=== PATIENT | female | born 1935 | race Caucasian/White ===

== ENCOUNTER 2019-06-06 22:32 | Emergency (ER) | payer OTHER ==
[~2019-06-06] VITALS: Ht 172.7 cm; Wt 90.7 kg
[2019-06-07] MEDS ORDERED: BENADRYL25 MG PO (17:59)
[2019-06-07] MEDS ORDERED: NAPR220 PO (17:59)
[2019-06-07] MEDS ORDERED: ONE DAILY FOR1 EACH PO (18:01)
== END 2019-06-07 01:36 | disposition home or self-care (01) ==
LOC: ER 22:32
DX: S70.02XA Contusion of left hip, initial encounter (principal); S70.01XA Contusion of right hip, initial encounter; Z88.5 Allergy status to narcotic agent; W19.XXXA Unspecified fall, initial encounter
CPT/HCPCS: 73502; 99283-25; A9270; A9270-GY

== ENCOUNTER → 2019-07-29 | Outpatient (CLI) | payer OTHER ==
[~2019-07-29] MED LIST: BENADRYL25 MG PO; CEPH250A; NAPR220 PO; Nystatin15 GM; ONE DAILY FOR1 EACH PO; Prinivil10 MG PO; SACC250C; TUMS500 MG PO
[2019-07-29 10:40] LABS: Anion Gap 5 mmol/L (6-16); Blood Urea Nitrogen 16 mg/dL (8-24); Bun/Creatinine Ratio 20.7 (12.0-20.0); CO2, Blood 30 mmol/L (21-32); Chloride, Blood 107 mmol/L (98-108); Creatinine, Blood 0.77 mg/dL (0.40-1.00); Glomerular Filtration Rate >60 (60-); Glucose, Blood 82 mg/dL (70-99); Potassium, Blood 4.5 mmol/L (3.5-5.5); Sodium, Blood 142 mmol/L (136-145)
== END | disposition home or self-care (01) ==
LOC: LAB UVN 08:32 → EDSTATUS 11:14
PROVIDERS: Family Medicine
DX: I10 Essential (primary) hypertension (principal); L03.115 Cellulitis of right lower limb
CPT/HCPCS: 80048

== ENCOUNTER 2020-09-20 09:37 | Observation (INO) | payer OTHER ==
[~2020-09-20] VITALS: Ht 177.8 cm; Wt 102.1 kg
[2020-09-20] MEDS ORDERED: CARBLEV25 SL (10:03)
[2020-09-20] MEDS ORDERED: DULCOLAX400 MG/5 M PO (10:03)
[2020-09-20] MEDS ORDERED: TRAM50 PO (10:04)
[2020-09-20 10:05] LABS: BASOPHILS ABSOLUTE AUTO 0.06 K/mm3 (0.00-0.23); BASOPHILS PERCENT AUTO 0 % (0-2); EOSINOPHILS PERCENT AUTO 0 % (0-6); Hematocrit 47.9 % (33.0-51.0); Hemoglobin 15.6 g/dL (11.5-16.0); IMMATURE GRAN ABSOLUTE AUTO 0.11 K/mm3 (0.00-0.10); IMMATURE GRAN PERCENT AUTO 1 % (0-1); LYMPHOCYTES PERCENT AUTO 5 % (21-46); MONOCYTES ABSOLUTE AUTO 0.87 K/mm3 (0.16-1.47); MONOCYTES PERCENT AUTO 4 % (4-13); Mean Corpuscular HGB 30.9 pg (26.0-34.0); Mean Corpuscular HGB Conc 32.6 g/dL (31.5-36.5); Mean Corpuscular Volume 95 fL (80-100); NEUTROPHILS ABSOLUTE AUTO 19.82 K/mm3 (1.96-9.15); NEUTROPHILS PERCENT AUTO 91 % (41-73); Platelet Count 338 K/mm3 (150-400); RDW Coefficient Variation 12.3 % (11.7-14.2); RDW Standard Deviation 43.1 fL (35.1-46.3); Red Blood Cell Count 5.05 M/mm3 (3.80-5.20); White Blood Cell Count 21.86 K/mm3 (4.00-11.30)
[2020-09-20] MEDS ORDERED: ONDA4ODT MM (10:05)
[2020-09-20] MEDS ORDERED: GABA300 PO (10:06)
[2020-09-20] MEDS ORDERED: GABA100 PO (10:06)
[2020-09-20] MEDS ORDERED: SENN187 PO (10:07)
[2020-09-20] MEDS ORDERED: MIRALAX17 G3 PO (10:08)
[2020-09-20] MEDS ORDERED: Aspir 8181 MG PO (10:09)
[2020-09-20] MEDS ORDERED: DULO30 PO (10:11)
[2020-09-20 10:31] LABS: Alanine Aminotransfer (ALT/SGP 18 U/L (12-78); Albumin, Blood 3.4 g/dL (3.4-5.0); Albumin/Globulin Ratio 0.7 (0.8-1.8); Alk Phos 102 U/L (50-136); Anion Gap 6 mmol/L (6-16); Aspartate Aminotrans (AST/SGOT 24 U/L (12-37); Bilirubin, Total 0.4 mg/dL (0.1-1.0); Blood Urea Nitrogen 22 mg/dL (8-24); Bun/Creatinine Ratio 39.4 (12.0-20.0); CO2, Blood 25 mmol/L (21-32); Calcium, Blood 9.5 mg/dL (8.5-10.1); Chloride, Blood 101 mmol/L (98-108); Creatinine, Blood 0.56 mg/dL (0.40-1.00); Globulin, Blood 5.1 g/dL (2.2-4.0); Glomerular Filtration Rate >60 (60-); Glucose, Blood 160 mg/dL (70-99); Sodium, Blood 132 mmol/L (136-145); Total Protein, Blood 8.5 g/dL (6.4-8.2)
[2020-09-20] MEDS ORDERED: CARBIDOPA-LEVO1 EA15 PO (12:19)
[2020-09-20 14:09] LABS: SARS-Cov-2 (COVID-19) PCR, MMC NEGATIVE (NEGATIVE)
--- NOTE | 2020-09-20 14:58 | NUR ---
09/20/20 1458 RAYMUNDOFARZAD DUGGAN PT RECEIVED SCHEDULED DOSES OF ANTIBIOTICS PRIOR TO PROCEDURE, PER DR ORDERS.
--- NOTE | 2020-09-20 18:30 | NUR ---
PT ARRIVED FROM PACU AT APPROXIMATELY 1830. PT RESPONDS TO QUESTIONS BUT IS DROWSY AND SLOW TO RESPOND. PT APPEARS TO HAVE DECREASED MOVEMENT TO ALL EXTREMITIES AT BASELINE. SHE IS UNABLE TO BEND HER FINGERS ON HER LEFT HAND, BUT CAN MOVE HER LEFT ARM. SHE APPEARS TO HAVE FOOT DROP. SHE HAS MOVEMENT IN HER R HAND AND ARM. PUPILS ARE EQUAL AND REACTIVE. SHE IS ORIENTED TO HERSELF, PLACE AND FOLLOWING DIRECTIONS. LAP SITES X3 COVERED WITH BANDAIDS, AND MELLY DRAIN, MODERATE SEROSANGINOUS DRAINAGE FROM AROUND DRAIN SITE. BP ELEVATED, WILL CONTINUE TO MONITOR.
--- NOTE | 2020-09-20 18:40 | NUR ---
Called [facility] to obtain information r/t pt's baseline, spoke with nurse Fernandez, who reported being minimally familiar w/ pt and an agency nurse. Nurse found from documentation that pt was last documented as a/o x 4 w/ no confusion and takes medications whole with water.
--- NOTE | 2020-09-20 23:00 | NUR ---
PT LETHARGIC.HELD PO FOR ASPIRATION RISK.DR ROBERTSON MADE ROUNDS TONIGHT.PT WITH NO VOID YET THIS SHIFT.WAS REPORTED PER DAY ROAD CONSULTANT PT VOIDED AT END OF THEIR SHIFT PER ATTEND.CURRENT BLADDER SCAN 239.ADVISED PATRICIA RODRIGUEZ. NO NEW ORDERS.WILL CONTINUE TO MONITOR.
--- NOTE | 2020-09-21 07:14 | NUR ---
SUMMARY PT AWAKE THIS AM.REFUSED LAB. PT HAD NO VOID THIS AM WITH BLADDER SCAN GREATER THAN 400 ML. 3 PERSON TRANSFER WT GAIT BELT.MAX LIFT.COMPLETE NWB. USED PRERNA BACK TO BED.PT INCONTINENT AFTER BACK TO BED.
[2020-09-21 09:40] LABS: BASOPHILS ABSOLUTE AUTO 0.03 K/mm3 (0.00-0.23); BASOPHILS PERCENT AUTO 0 % (0-2); EOSINOPHILS PERCENT AUTO 0 % (0-6); Hematocrit 39.6 % (33.0-51.0); Hemoglobin 12.7 g/dL (11.5-16.0); IMMATURE GRAN PERCENT AUTO 1 % (0-1); LYMPHOCYTES ABSOLUTE AUTO 1.35 K/mm3 (0.84-5.20); LYMPHOCYTES PERCENT AUTO 6 % (21-46); MONOCYTES ABSOLUTE AUTO 0.83 K/mm3 (0.16-1.47); MONOCYTES PERCENT AUTO 4 % (4-13); Mean Corpuscular HGB 30.5 pg (26.0-34.0); Mean Corpuscular HGB Conc 32.1 g/dL (31.5-36.5); Mean Corpuscular Volume 95 fL (80-100); Mean Platelet Volume 11.5 fL (9.1-12.4); NEUTROPHILS ABSOLUTE AUTO 20.66 K/mm3 (1.96-9.15); NEUTROPHILS PERCENT AUTO 90 % (41-73); Platelet Count 262 K/mm3 (150-400); RDW Coefficient Variation 12.9 % (11.7-14.2); RDW Standard Deviation 45.1 fL (35.1-46.3); Red Blood Cell Count 4.16 M/mm3 (3.80-5.20); White Blood Cell Count 23.07 K/mm3 (4.00-11.30)
[2020-09-21 09:51] LABS: Alanine Aminotransfer (ALT/SGP 27 U/L (12-78); Albumin, Blood 2.5 g/dL (3.4-5.0); Albumin/Globulin Ratio 0.7 (0.8-1.8); Alk Phos 66 U/L (50-136); Anion Gap 7 mmol/L (6-16); Aspartate Aminotrans (AST/SGOT 22 U/L (12-37); Bilirubin, Total 0.3 mg/dL (0.1-1.0); Blood Urea Nitrogen 25 mg/dL (8-24); Bun/Creatinine Ratio 34.4 (12.0-20.0); CO2, Blood 27 mmol/L (21-32); Calcium, Blood 8.4 mg/dL (8.5-10.1); Chloride, Blood 104 mmol/L (98-108); Creatinine, Blood 0.73 mg/dL (0.40-1.00); Globulin, Blood 3.7 g/dL (2.2-4.0); Glomerular Filtration Rate >60 (60-); Glucose, Blood 144 mg/dL (70-99); Sodium, Blood 138 mmol/L (136-145)
[2020-09-21 10:19] LABS: Total Protein, Blood 6.2 g/dL (6.4-8.2)
--- NOTE | 2020-09-21 19:23 | NUR ---
RECEIVED REPORT AND ASSUMED CARE OF PT. SHE STATES THAT HER PAIN "JUMPS UP" TP 6/10 AFTER EATING AND RESOLVES AFTERWARD, BUT WAS UNABLE TO STATE HOW LONG IT TAKES TO RESOLVE. SHE DENIES THE NEED FOR ANY PAIN MEDICATION AT THIS TIME, BUT WOULD LIKE APAP WITH HER NIGHTTIME MEDS. SHE IS LYING IN BED WITH THE CALL LIGHT IN REACH. TM.
[2020-09-22 05:11] LABS: Hematocrit 35.7 % (33.0-51.0); Hemoglobin 11.4 g/dL (11.5-16.0); Mean Corpuscular HGB 30.7 pg (26.0-34.0); Mean Corpuscular HGB Conc 31.9 g/dL (31.5-36.5); Mean Corpuscular Volume 96 fL (80-100); Mean Platelet Volume 10.9 fL (9.1-12.4); Platelet Count 246 K/mm3 (150-400); RDW Coefficient Variation 12.9 % (11.7-14.2); RDW Standard Deviation 46.2 fL (35.1-46.3); Red Blood Cell Count 3.71 M/mm3 (3.80-5.20)
[2020-09-22 05:33] LABS: Anion Gap 4 mmol/L (6-16); Blood Urea Nitrogen 23 mg/dL (8-24); Bun/Creatinine Ratio 29.8 (12.0-20.0); CO2, Blood 30 mmol/L (21-32); Calcium, Blood 8.4 mg/dL (8.5-10.1); Chloride, Blood 105 mmol/L (98-108); Creatinine, Blood 0.77 mg/dL (0.40-1.00); Glomerular Filtration Rate >60 (60-); Glucose, Blood 92 mg/dL (70-99); Potassium, Blood 3.6 mmol/L (3.5-5.5); Sodium, Blood 139 mmol/L (136-145)
--- NOTE | 2020-09-22 06:02 | NUR ---
SHIFT SUMMARY: CHIKI AROUSES EASILY AND RESPONDS APPROPRIATELY. VSS, NO ACUTE EVENTS OVERNIGHT. IV TO RIGHT FOREARM PATENT. ATTENDS IN PLACE, SHE IS INCONTINENT OF BLADDER AND BOWEL. LAP SITES TO ABDOMEN C/D&I. MELLY DRAIN WITH MINIMAL OUTPUT. SHE IS TOLERATING PO INTAKE WELL AND HAS NOT REQURIED PAIN MEDICATION THIS SHIFT. SHE IS LYING IN BED WITH THE CALL LIGHT IN REACH. WILL REPORT TO DAY SHIFT RN.
--- NOTE | 2020-09-22 12:11 | NUR ---
DRAIN REMOVED WITH DR. ROBERTSON. PT REPORTED PAIN THAT SUBSIDED QUICKLY. CURRENTLY LAYING IN BED EATING HER LUNCH AT THIS TIME.
--- NOTE | 2020-09-22 17:33 | NUR ---
SHIFT SUMMARY POD 2 LAP DELORES PT AA0X4, NO PAIN THROUGHOUT SHIFT. TOLERATING PO WELL WITH NO COMPLAINTS OF NAUSEA OR INCREASED PAIN. MELLY REMOVED THIS AFTERNOON. GAUZE DRESSING ON SITE WITH MINIMAL DRAINAGE. PT REPOSITIONS SELF IN BED, HELPS ROLL DURING CHANGES. PLAN IS TO DC BACK TO [facility] ONCE ARANGMENTS FOR TRANSFER CAN BE MADE. ATTEMPTED TO CALL [facility] TODAY. UNABLE TO REACH.
--- NOTE | 2020-09-23 04:58 | NUR ---
SHIFT SUMMARY: CHIKI IS A&0X4. VSS, NO ACUTE EVENTS OVERNIGHT. SHE DID REPORT SOME GI UPSET WHICH IMPROVED WITH TUMS. SHE IS TOLERATING PO INTAKE WELL, ABDOMINAL DRESSINGS C/D&I. ATTENDS IN PLACE, INCONTINENT OF BLADDER AND BOWEL, EXCELLENT URINE OUTPUT. SHE HAS DENIED THE NEED FOR PAIN MEDICATION THIS SHIFT. SHE USES THE CALL LIGHT APPROPRIATELY. SHE IS LYING IN BED WITH THE CALL LIGHT IN REACH. WILL REPORT TO DAY SHIFT RN.
[2020-09-23] MEDS ORDERED: LISI5 PO (09:41)
[2020-09-23] MEDS ORDERED: AMOCLA875 PO (09:42)
[2020-09-23] MEDS ORDERED: Florastor250 MG PO (09:42)
[2020-09-23 10:31] LABS: SARS-Cov-2 (COVID-19) PCR, MMC NEGATIVE (NEGATIVE)
--- NOTE | 2020-09-23 13:00 | NUR ---
DISCHARGE SUMMARY PT LEFT WITH TRANSPORT TO [facility], WITH ALL PERSONAL BELONGINGS INCLUDING PURSE AND PHONE; PACKET GIVEN TO TRANSPORT FOR UV. IV DC'D. REPORT CALLED TO LÁZARO PALOMARES.
== END 2020-09-23 13:13 | disposition home or self-care (01) ==
LOC: ER 09:37 → SURS 09:38 → ER 13:07 → SURS 13:07
PROVIDERS: Emergency Medicine; Nurse Practitioner Acute Care; Surgery; ADMIT Internal Medicine
PROC: 0FT44ZZ Resection of Gallbladder, Percutaneous Endoscopic Approach (ICD-10-PCS; principal; 2020-09-20 13:30)
DX: K80.00 Calculus of gallbladder with acute cholecystitis without obstruction (principal); K82.A1 Gangrene of gallbladder in cholecystitis; R65.11 Systemic inflammatory response syndrome (SIRS) of non-infectious origin with acute organ dysfunction; I10 Essential (primary) hypertension; E66.01 Morbid (severe) obesity due to excess calories; Z68.32 Body mass index [BMI] 32.0-32.9, adult; Z79.82 Long term (current) use of aspirin; Z91.012 Allergy to eggs; Z88.5 Allergy status to narcotic agent; Z91.018 Allergy to other foods; G20 Parkinson's disease; E87.1 Hypo-osmolality and hyponatremia; M21.942 Unspecified acquired deformity of hand, left hand; Z20.822 Contact with and (suspected) exposure to COVID-19
CPT/HCPCS: 36415; 73100; 74177; 76705; 80048; 80053; 83690; 85025; 85027; 88304; 93005; 93010; 96365; 96366; 96367; 96368; 96375; 96376; 97110; 97161; 97165; 99285-25; A9270; G0378; J0360; J0696; J1100; J2250; J2405; J2543; J2704; J3010; J7030; J7050; J7120; Q9967; U0004

== ENCOUNTER → 2020-09-24 | Outpatient (CLI) | payer OTHER ==
[~2020-09-24] MED LIST changes: +AMOCLA875 PO; +Aspir 8181 MG PO; +CARBIDOPA-LEVO1 EA15 PO; +CARBLEV25 SL; +DULCOLAX400 MG/5 M PO; +DULO30 PO; +Florastor250 MG PO; +GABA100 PO; +GABA300 PO; +LISI5 PO; +MIRALAX17 G3 PO; +ONDA4ODT MM; +SENN187 PO; +TRAM50 PO
[2020-09-25 06:18] LABS: BASOPHILS ABSOLUTE AUTO 0.06 K/mm3 (0.00-0.23); BASOPHILS PERCENT AUTO 1 % (0-2); EOSINOPHILS ABSOLUTE AUTO 0.61 K/mm3 (0.00-0.68); EOSINOPHILS PERCENT AUTO 5 % (0-6); Hematocrit 37.5 % (33.0-51.0); Hemoglobin 11.8 g/dL (11.5-16.0); IMMATURE GRAN ABSOLUTE AUTO 0.03 K/mm3 (0.00-0.10); IMMATURE GRAN PERCENT AUTO 0 % (0-1); LYMPHOCYTES ABSOLUTE AUTO 2.97 K/mm3 (0.84-5.20); LYMPHOCYTES PERCENT AUTO 24 % (21-46); MONOCYTES ABSOLUTE AUTO 0.86 K/mm3 (0.16-1.47); MONOCYTES PERCENT AUTO 7 % (4-13); Mean Corpuscular HGB 30.6 pg (26.0-34.0); Mean Corpuscular HGB Conc 31.5 g/dL (31.5-36.5); Mean Corpuscular Volume 97 fL (80-100); Mean Platelet Volume 11.9 fL (9.1-12.4); NEUTROPHILS ABSOLUTE AUTO 7.87 K/mm3 (1.96-9.15); NEUTROPHILS PERCENT AUTO 64 % (41-73); Platelet Count 272 K/mm3 (150-400); RDW Coefficient Variation 12.7 % (11.7-14.2); RDW Standard Deviation 45.8 fL (35.1-46.3); Red Blood Cell Count 3.85 M/mm3 (3.80-5.20)
[2020-09-25 06:36] LABS: Anion Gap 4 mmol/L (6-16); Blood Urea Nitrogen 8 mg/dL (8-24); Bun/Creatinine Ratio 14.7 (12.0-20.0); CO2, Blood 31 mmol/L (21-32); Calcium, Blood 8.1 mg/dL (8.5-10.1); Chloride, Blood 105 mmol/L (98-108); Creatinine, Blood 0.55 mg/dL (0.40-1.00); Glomerular Filtration Rate >60 (60-); Glucose, Blood 95 mg/dL (70-99); Potassium, Blood 3.5 mmol/L (3.5-5.5); Sodium, Blood 140 mmol/L (136-145)
== END | disposition home or self-care (01) ==
LOC: LAB UVN 06:09 → EDSTATUS 09-26 10:34
PROVIDERS: Internal Medicine
DX: E66.01 Morbid (severe) obesity due to excess calories (principal); I10 Essential (primary) hypertension
CPT/HCPCS: 80048; 85025

== ENCOUNTER → 2020-09-27 | Outpatient (CLI) | payer OTHER ==
[2020-09-27 06:19] LABS: BASOPHILS ABSOLUTE AUTO 0.06 K/mm3 (0.00-0.23); BASOPHILS PERCENT AUTO 0 % (0-2); EOSINOPHILS ABSOLUTE AUTO 0.69 K/mm3 (0.00-0.68); EOSINOPHILS PERCENT AUTO 4 % (0-6); Hematocrit 36.5 % (33.0-51.0); Hemoglobin 11.6 g/dL (11.5-16.0); IMMATURE GRAN ABSOLUTE AUTO 0.06 K/mm3 (0.00-0.10); IMMATURE GRAN PERCENT AUTO 0 % (0-1); LYMPHOCYTES ABSOLUTE AUTO 2.33 K/mm3 (0.84-5.20); LYMPHOCYTES PERCENT AUTO 14 % (21-46); MONOCYTES ABSOLUTE AUTO 1.11 K/mm3 (0.16-1.47); MONOCYTES PERCENT AUTO 7 % (4-13); Mean Corpuscular HGB 31.1 pg (26.0-34.0); Mean Corpuscular HGB Conc 31.8 g/dL (31.5-36.5); Mean Corpuscular Volume 98 fL (80-100); Mean Platelet Volume 11.3 fL (9.1-12.4); NEUTROPHILS ABSOLUTE AUTO 11.97 K/mm3 (1.96-9.15); NEUTROPHILS PERCENT AUTO 74 % (41-73); Platelet Count 281 K/mm3 (150-400); RDW Standard Deviation 46.9 fL (35.1-46.3); Red Blood Cell Count 3.73 M/mm3 (3.80-5.20); White Blood Cell Count 16.22 K/mm3 (4.00-11.30)
[2020-09-27 06:27] LABS: Anion Gap 4 mmol/L (6-16); Blood Urea Nitrogen 9 mg/dL (8-24); Bun/Creatinine Ratio 14.8 (12.0-20.0); CO2, Blood 31 mmol/L (21-32); Calcium, Blood 8.5 mg/dL (8.5-10.1); Chloride, Blood 105 mmol/L (98-108); Creatinine, Blood 0.61 mg/dL (0.40-1.00); Glomerular Filtration Rate >60 (60-); Glucose, Blood 86 mg/dL (70-99); Potassium, Blood 3.7 mmol/L (3.5-5.5); Sodium, Blood 140 mmol/L (136-145)
[2020-09-27 20:00] LABS: Bilirubin, Urine Neg (Neg); Blood, Urine 4+ (Neg); Glucose Qualitative, Urine Neg (Neg); Ketones, Urine Neg (Neg); Leukocyte Esterase, Urine 1+ (Neg); Nitrite, Urine Neg (Neg); Protein, Urine 2+ (Neg); Urobilinogen, Urine NORM (Normal)
[2020-09-27 20:07] LABS: Appearance, Urine Clear (Clear); Color, Urine Yellow (P-Yellow)
[2020-09-27 20:10] LABS: Bacteria Few /hpf; Squamous Epithelial Cells Few /hpf (Few)
[2020-09-27 20:11] LABS: Calcium Oxalate Crystals Many /hpf
== END | disposition home or self-care (01) ==
LOC: LAB UVN 06:11 → EDSTATUS 10:37
PROVIDERS: Family Medicine
DX: G20 Parkinson's disease (principal); K81.0 Acute cholecystitis; D72.829 Elevated white blood cell count, unspecified
CPT/HCPCS: 80048; 81001; 85025; 87040; 87086

== ENCOUNTER → 2020-10-01 | Outpatient (CLI) | payer OTHER ==
[2020-10-01 22:40] LABS: Hematocrit 37.8 % (33.0-51.0); Hemoglobin 11.8 g/dL (11.5-16.0); Mean Corpuscular HGB 30.3 pg (26.0-34.0); Mean Corpuscular HGB Conc 31.2 g/dL (31.5-36.5); Mean Corpuscular Volume 97 fL (80-100); Mean Platelet Volume 11.6 fL (9.1-12.4); Platelet Count 337 K/mm3 (150-400); RDW Coefficient Variation 12.9 % (11.7-14.2)
== END | disposition home or self-care (01) ==
LOC: EDSTATUS 10:41 → LAB UVN 20:30
PROVIDERS: Internal Medicine
DX: I10 Essential (primary) hypertension (principal)
CPT/HCPCS: 85027

== ENCOUNTER → 2020-10-08 | Outpatient (CLI) | payer OTHER ==
[2020-10-09 00:38] LABS: Hematocrit 39.9 % (33.0-51.0); Hemoglobin 12.6 g/dL (11.5-16.0); Mean Corpuscular HGB 30.7 pg (26.0-34.0); Mean Corpuscular HGB Conc 31.6 g/dL (31.5-36.5); Mean Corpuscular Volume 97 fL (80-100); Mean Platelet Volume 12.2 fL (9.1-12.4); Platelet Count 317 K/mm3 (150-400); RDW Coefficient Variation 12.8 % (11.7-14.2); RDW Standard Deviation 46.1 fL (35.1-46.3); Red Blood Cell Count 4.11 M/mm3 (3.80-5.20); White Blood Cell Count 13.88 K/mm3 (4.00-11.30)
== END | disposition home or self-care (01) ==
LOC: EDSTATUS 10:42 → LAB UVN 20:25
PROVIDERS: Internal Medicine
DX: I10 Essential (primary) hypertension (principal)
CPT/HCPCS: 85027

== ENCOUNTER → 2020-10-15 | Outpatient (CLI) | payer OTHER ==
[2020-10-15 23:43] LABS: Hematocrit 36.8 % (33.0-51.0); Hemoglobin 11.6 g/dL (11.5-16.0); Mean Corpuscular HGB 30.1 pg (26.0-34.0); Mean Corpuscular HGB Conc 31.5 g/dL (31.5-36.5); Mean Corpuscular Volume 96 fL (80-100); Mean Platelet Volume 11.9 fL (9.1-12.4); Platelet Count 295 K/mm3 (150-400); RDW Coefficient Variation 12.7 % (11.7-14.2); RDW Standard Deviation 44.6 fL (35.1-46.3); Red Blood Cell Count 3.85 M/mm3 (3.80-5.20); White Blood Cell Count 10.18 K/mm3 (4.00-11.30)
== END | disposition home or self-care (01) ==
LOC: EDSTATUS 10:44 → LAB UVN 22:15
PROVIDERS: Internal Medicine
DX: G20 Parkinson's disease (principal); M62.81 Muscle weakness (generalized)
CPT/HCPCS: 85027

== ENCOUNTER → 2022-06-02 | Outpatient (CLI) | payer OTHER ==
[2022-06-02 11:44] LABS: Hematocrit 44.8 % (33.0-51.0); Hemoglobin 14.1 g/dL (11.5-16.0); Mean Corpuscular HGB 30.6 pg (26.0-34.0); Mean Corpuscular HGB Conc 31.5 g/dL (31.5-36.5); Mean Corpuscular Volume 97 fL (80-100); Mean Platelet Volume 11.9 fL (9.1-12.4); Platelet Count 207 K/mm3 (150-400); RDW Coefficient Variation 12.7 % (11.7-14.2); RDW Standard Deviation 45.5 fL (35.1-46.3); Red Blood Cell Count 4.61 M/mm3 (3.80-5.20); White Blood Cell Count 9.31 K/mm3 (4.00-11.30)
[2022-06-02 13:08] LABS: Bun/Creatinine Ratio 30.3 (12.0-20.0); Calcium, Blood 8.9 mg/dL (8.5-10.1); Creatinine, Blood 0.56 mg/dL (0.40-1.00); Potassium, Blood 4.4 mmol/L (3.5-5.5)
== END ==
LOC: EDSTATUS 10:00 → LAB UVN 10:30
PROVIDERS: Internal Medicine
DX: I10 Essential (primary) hypertension (principal); G20 Parkinson's disease
CPT/HCPCS: 80048; 85027

== ENCOUNTER → 2022-07-03 | Outpatient (CLI) | payer OTHER ==
[2022-07-03 16:33] LABS: Appearance, Urine Cloudy (Clear); Bilirubin, Urine Neg (Neg); Blood, Urine 5+ (Neg); Color, Urine Yellow (P-Yellow); Glucose Qualitative, Urine Neg (Neg); Ketones, Urine Neg (Neg); Leukocyte Esterase, Urine 3+ (Neg); Nitrite, Urine Pos (Neg); Protein, Urine 2+ (Neg); Specific Gravity, Urine 1.015 (1.003-1.022); Urobilinogen, Urine NORM (Normal)
[2022-07-03 16:48] LABS: White Blood Cells, Urine TNTC /hpf (0-5)
[2022-07-03 16:49] LABS: Bacteria Many /hpf; Squamous Epithelial Cells Rare /hpf (Few)
== END | disposition home or self-care (01) ==
LOC: LAB UVN 15:40 → EDSTATUS 15:43
PROVIDERS: Internal Medicine
DX: N39.0 Urinary tract infection, site not specified (principal)
CPT/HCPCS: 81001; 87077; 87086; 87186

== ENCOUNTER 2024-03-18 16:06 | Emergency (ER) | payer OTHER ==
[~2024-03-18] VITALS: Ht 165.1 cm; Wt 79.4 kg
[2024-03-18 16:54] VITALS: BP 102/45
[2024-03-18 18:20] LABS: Source, Urine Straight Cath
[2024-03-18 18:23] LABS: Appearance, Urine Cloudy (Clear); Blood, Urine 4+ (Neg); Color, Urine Yellow (P-Yellow); Glucose Qualitative, Urine Neg (Neg); Ketones, Urine Neg (Neg); Leukocyte Esterase, Urine 3+ (Neg); Nitrite, Urine Neg (Neg); Protein, Urine 3+ (Neg); Urobilinogen, Urine 2+ (Normal)
[2024-03-18 18:33] LABS: Bilirubin, Urine 1+ (Neg)
[2024-03-18 18:37] LABS: Bacteria Many /hpf; Squamous Epithelial Cells Mod /hpf (Few); Transitional Epithelial Cells Rare /hpf (0-Rare); WBC Cast 0-2 /lpf (0); White Blood Cells, Urine TNTC /hpf (0-5)
[2024-03-18 19:01] LABS: BASOPHILS ABSOLUTE AUTO 0.07 K/mm3 (0.00-0.23); BASOPHILS PERCENT AUTO 1 % (0-2); EOSINOPHILS ABSOLUTE AUTO 0.06 K/mm3 (0.00-0.68); EOSINOPHILS PERCENT AUTO 1 % (0-6); Hematocrit 36.2 % (33.0-51.0); Hemoglobin 11.9 g/dL (11.5-16.0); IMMATURE GRAN ABSOLUTE AUTO 0.04 K/mm3 (0.00-0.10); IMMATURE GRAN PERCENT AUTO 0 % (0-1); LYMPHOCYTES ABSOLUTE AUTO 1.26 K/mm3 (0.84-5.20); LYMPHOCYTES PERCENT AUTO 13 % (21-46); MONOCYTES ABSOLUTE AUTO 0.59 K/mm3 (0.16-1.47); MONOCYTES PERCENT AUTO 6 % (4-13); Mean Corpuscular HGB 32.1 pg (26.0-34.0); Mean Corpuscular HGB Conc 32.9 g/dL (31.5-36.5); Mean Corpuscular Volume 98 fL (80-100); Mean Platelet Volume 12.2 fL (9.1-12.4); NEUTROPHILS ABSOLUTE AUTO 8.04 K/mm3 (1.96-9.15); NEUTROPHILS PERCENT AUTO 80 % (41-73); Platelet Count 222 K/mm3 (150-400); RDW Coefficient Variation 16.9 % (11.7-14.2); RDW Standard Deviation 60.2 fL (35.1-46.3); Red Blood Cell Count 3.71 M/mm3 (3.80-5.20); White Blood Cell Count 10.06 K/mm3 (4.00-11.30)
[2024-03-18] MEDS ORDERED: CefTRIAXone 1000 MG Vial IM ONE (19:05)
[2024-03-18] MEDS ORDERED: CEFD300 PO (19:21)
[2024-03-18 19:24] LABS: Albumin, Blood 1.8 g/dL (3.4-5.0); Albumin/Globulin Ratio 0.4 (0.8-1.8); Bilirubin, Total 1.3 mg/dL (0.1-1.0); Bun/Creatinine Ratio 23.4 (12.0-20.0); Calcium, Blood 8.1 mg/dL (8.5-10.1); Creatinine, Blood 0.94 mg/dL (0.40-1.00); Potassium, Blood 4.2 mmol/L (3.5-5.5); Total Protein, Blood 5.8 g/dL (6.4-8.2)
[2024-03-19] MEDS ORDERED: MIRTAZAPINE7.5 M1 PO (12:00)
[2024-03-19] MEDS ORDERED: FUROSEMIDE40 MG PO (12:01)
[2024-03-19] MEDS ORDERED: POTCHL20ER PO (12:03)
[2024-03-19] MEDS ORDERED: ENSURE PLUS237 ML PO (12:04)
[2024-03-19] MEDS ORDERED: Acetaminophen650 M1 PO (12:06)
[2024-03-19] MEDS ORDERED: BENADRYL25 MG PO (12:06)
[2024-03-19] MEDS ORDERED: BISA10S PR (12:07)
[2024-03-19] MEDS ORDERED: Fleet Enema132 ML PR (12:07)
[2024-03-19] MEDS ORDERED: IBUP400 PO (12:08)
[2024-03-19] MEDS ORDERED: Preparation H26 GM TOP (12:10)
[2024-03-19] MEDS ORDERED: TRAM50 PO (12:17)
[2024-03-19] MEDS ORDERED: SIME80CH PO (12:17)
[2024-03-19] MEDS ORDERED: TUMS500 MG PO (12:18)
== END 2024-03-18 21:28 | disposition home or self-care (01) ==
LOC: ER 16:06
PROVIDERS: Emergency Medicine
DX: N39.0 Urinary tract infection, site not specified (principal); G93.41 Metabolic encephalopathy; Z88.8 Allergy status to other drugs, medicaments and biological substances; Z91.018 Allergy to other foods; Z91.012 Allergy to eggs; Z79.899 Other long term (current) drug therapy; Z79.82 Long term (current) use of aspirin
CPT/HCPCS: 36415; 51701; 71045; 80053; 81001; 85025; 93005; 93010; 96372-59; 99284-25; J0696

== ENCOUNTER 2024-03-19 11:12 | Emergency (ER) | payer OTHER ==
[~2024-03-19] VITALS: Ht 167.6 cm; Wt 83.9 kg
[~2024-03-19 11:12] MED LIST changes: +CEFD300 PO
[2024-03-19] MEDS ORDERED: MIRTAZAPINE7.5 M1 PO (12:00)
[2024-03-19] MEDS ORDERED: FUROSEMIDE40 MG PO (12:01)
[2024-03-19] MEDS ORDERED: POTCHL20ER PO (12:03)
[2024-03-19] MEDS ORDERED: ENSURE PLUS237 ML PO (12:04)
[2024-03-19] MEDS ORDERED: Acetaminophen650 M1 PO (12:06)
[2024-03-19] MEDS ORDERED: BENADRYL25 MG PO (12:06)
[2024-03-19] MEDS ORDERED: BISA10S PR (12:07)
[2024-03-19] MEDS ORDERED: Fleet Enema132 ML PR (12:07)
[2024-03-19] MEDS ORDERED: IBUP400 PO (12:08)
[2024-03-19] MEDS ORDERED: Preparation H26 GM TOP (12:10)
[2024-03-19] MEDS ORDERED: SIME80CH PO (12:17)
[2024-03-19] MEDS ORDERED: TRAM50 PO (12:17)
[2024-03-19] MEDS ORDERED: TUMS500 MG PO (12:18)
[2024-03-19 12:20] LABS: Influenza A, PCR NEGATIVE (NEGATIVE); Influenza B, PCR NEGATIVE (NEGATIVE); Resp Syncytial Virus, PCR NEGATIVE (NEGATIVE); SARS-Cov-2 (COVID-19) PCR, MMC NEGATIVE (NEGATIVE)
[2024-03-19 14:30] LABS: BASOPHILS ABSOLUTE AUTO 0.05 K/mm3 (0.00-0.23); BASOPHILS PERCENT AUTO 0 % (0-2); EOSINOPHILS PERCENT AUTO 0 % (0-6); Hematocrit 32.4 % (33.0-51.0); Hemoglobin 10.5 g/dL (11.5-16.0); IMMATURE GRAN ABSOLUTE AUTO 0.04 K/mm3 (0.00-0.10); IMMATURE GRAN PERCENT AUTO 0 % (0-1); LYMPHOCYTES ABSOLUTE AUTO 1.63 K/mm3 (0.84-5.20); LYMPHOCYTES PERCENT AUTO 14 % (21-46); MONOCYTES ABSOLUTE AUTO 0.94 K/mm3 (0.16-1.47); MONOCYTES PERCENT AUTO 8 % (4-13); Mean Corpuscular HGB 31.9 pg (26.0-34.0); Mean Corpuscular HGB Conc 32.4 g/dL (31.5-36.5); Mean Corpuscular Volume 99 fL (80-100); Mean Platelet Volume 12.3 fL (9.1-12.4); NEUTROPHILS ABSOLUTE AUTO 9.16 K/mm3 (1.96-9.15); NEUTROPHILS PERCENT AUTO 78 % (41-73); Platelet Count 198 K/mm3 (150-400); RDW Coefficient Variation 17.2 % (11.7-14.2); RDW Standard Deviation 63.1 fL (35.1-46.3); Red Blood Cell Count 3.29 M/mm3 (3.80-5.20); White Blood Cell Count 11.82 K/mm3 (4.00-11.30)
[2024-03-19 14:49] LABS: Magnesium, Blood 1.7 mg/dL (1.6-2.4)
[2024-03-19 15:12] LABS: Alanine Aminotransfer (ALT/SGP <6 U/L (12-78); Albumin, Blood 1.6 g/dL (3.4-5.0); Albumin/Globulin Ratio 0.5 (0.8-1.8); Alk Phos 106 U/L (50-136); Anion Gap 13 mmol/L (3-11); Aspartate Aminotrans (AST/SGOT 21 U/L (12-37); Bilirubin, Total 0.7 mg/dL (0.1-1.0); Blood Urea Nitrogen 25 mg/dL (8-24); Bun/Creatinine Ratio 21.9 (12.0-20.0); CO2, Blood 29 mmol/L (21-32); Calcium, Blood 8.1 mg/dL (8.5-10.1); Chloride, Blood 107 mmol/L (98-108); Creatinine, Blood 1.14 mg/dL (0.40-1.00); Globulin, Blood 3.4 g/dL (2.2-4.0); Glomerular Filtration Rate 46 (60-); Glucose, Blood 90 mg/dL (70-99); Potassium, Blood 4.1 mmol/L (3.5-5.5); Sodium, Blood 145 mmol/L (136-145)
[2024-03-19 17:00] VITALS: BP 108/53
== END 2024-03-19 17:30 | disposition home or self-care (01) ==
LOC: ER 11:12
PROVIDERS: Student in an Organized Health Care Education/Training Program
DX: R06.00 Dyspnea, unspecified (principal); N30.00 Acute cystitis without hematuria; Z88.8 Allergy status to other drugs, medicaments and biological substances; Z91.018 Allergy to other foods; Z88.5 Allergy status to narcotic agent; Z91.012 Allergy to eggs; Z79.899 Other long term (current) drug therapy; Z79.82 Long term (current) use of aspirin
CPT/HCPCS: 0241U; 70450; 71045; 80053; 83735; 83880; 84484; 85025; 93005; 93010; 99285-25; C1751